=== PATIENT | female | born 1985 | race Caucasian/White ===

== ENCOUNTER 2016-09-25 07:12 | Inpatient (IN) | payer OTHER ==
[~2016-09-25 07:12] MED LIST: FISHCAP; LACTCAP7 PO; MAGN500T4 PO; PERC5TAB12 PO; PREN1TAB30; VITACAP32; [UNRECOGNIZED DRUG - OTHER]
[2016-09-25] MEDS ORDERED: LACTATED RINGER'S 1000 ML INJ 1,000 ML IV PRN (07:59)
[2016-09-25] MEDS ORDERED: LACTATED RINGER'S 1000 ML INJ 1,000 ML IV SCH (07:59)
[2016-09-25] MEDS ORDERED: CITRIC ACID-SODIUM CITRATE LIQ 30 ML UDC PO SCH (08:00)
[2016-09-25] MEDS ORDERED: OXYTOCIN 30 UNITS-500ML PREMIX 500 ML IV ONE (08:00)
[2016-09-25] MEDS ORDERED: SODIUM CHLORID 0.9% 500 ML INJ 500 ML IV PRN (08:00)
[2016-09-25] MEDS ORDERED: LIDOCAINE HCL 1% 50 ML VIAL I-DERMAL PRN (08:00)
[2016-09-25] MEDS ORDERED: MINERAL OIL 10 ML VIAL TOPICAL PRN (08:00)
[2016-09-25] MEDS ORDERED: LIDOCAINE HCL 1% 50 ML VIAL INFIL PRN (08:00)
--- NOTE | 2016-09-25 08:10 | HHI.HP ---
HPI Chief Complaint Complaint regular uterine contractions and pain denies ruptured membranes or bleeding followed by donavon DORADO Date Seen: Sep 25, 2016 Travel History International Travel<30 Days: No Contact w/Intl Traveler<30Days: No History of Present Illness HPI Patient 40 week intrauterine presents in active labor, no vaginal bleeding membranes are intact with a bulging bag. Cervix is 6 cm dilated AND an 100% effaced. Para: 1 : 3 : 1 History Past Medical History Narrative Medical Patient is a history of spina bifida occulta Obstetric History Obstetric History One vaginal delivery one spontaneous AB Family History Family History: Negative Social History Alcohol Use: No Tobacco Use: No Substance Abuse: No Allergies-Medications (Allergen,Severity, Reaction): Coded Allergies: No Known Allergies (Verified , 04/07/14) Home Meds Active Scripts Oxycodone-Acetaminophen 5-325 mg (Percocet 5-325 mg)1 Tab Tab2 Tab PO Q4H PRN ( PAIN SCALE 5 TO 10) #20 TAB Prov:Ernie Zelaya MD 04/09/14 Reported Medications Lactobacillus (Probiotic) Cap1 Po 04/07/14 [grassfed liver] No Conflict Check 04/07/14 Vitamin2 04/07/14 Magnesium (Magnesium)500 Mg Lbs468 Mg PO DAILY 04/07/14 Fish Oi1 04/07/14 Vit W/ Ferrous Fumara ( Vitamin 27-0.8 mg)1 Tab Tab 04/07/14 Review of Systems General / Constitutional: No: Fever, Weight Gain, Chills, Other Physical Exam Narrative GENERAL: Well-nourished, well-developed patient. SKIN: Warm and dry. HEAD: Normocephalic and atraumatic. EYES: No scleral icterus. No injection or drainage. ENT: No nasal drainage noted. Mucous membranes pink. Airway patent. NECK: Supple, trachea midline. No JVD. CARDIOVASCULAR: Regular rate and rhythm without murmurs, gallops, or rubs. RESPIRATORY: Breath sounds equal bilaterally. No accessory muscle use. BREASTS: Bilateral exam showed no masses , no retractions, no nipple discharge. ABDOMEN/GI: Abdomen soft, non-tender, bowel sounds present, no rebound, no guarding Gravid to [term-] weeks size Fundal Height: [38 cm-] GENITOURINARY: External Genitalia: intact and normal in appearance BUS glands: [-] Cervix: [-] Dilatation: [6 cm-] Effacement: [100-] Station: [-2] Presentation: [-vtx] Membranes: [intact ] Uterine Contractions: [yes] FHT's: Category: [1-] Baseline: [-145] Reactive: [-Reactive] Variability: [-] Decels: [-none] EXTREMITIES: No cyanosis or edema. BACK: Nontender without obvious deformity. No CVA tenderness. NEUROLOGICAL: Awake and alert. Motor and sensory grossly within normal limits. Five out of 5 muscle strength in all muscle groups. Normal speech. Data Data Orders Ob (2e) Additional Admit Info (09/25/16 07:41) Admit To Inpatient (09/25/16 ) Vital Signs (Adult) .Per protocol (09/25/16 07:59) ^ Heart (09/25/16 07:59) ^ Amnioinfusion (09/25/16 07:59) Urinary Catheter Management .ONCE (09/25/16 07:59) Diet Liquid (09/25/16 Breakfast) Lactated Ringer's 1000 Ml Inj (Lr 1000 M (09/25/16 07:59) Lactated Ringer's 1000 Ml Inj (Lr 1000 M (09/25/16 07:59) Sodium Chlorid 0.9% 500 Ml Inj (Ns 500 M (09/25/16 08:00) Sodium Chlor 0.9% 1000 Ml Inj (Ns 1000 M (09/25/16 08:19) Lidocaine 1% Inj (50 Ml) (Xylocaine 1% I (09/25/16 08:00) Citric Acid-Sodium Citrate Liq (Bicitra (09/25/16 08:00) Fentanyl Inj (Fentanyl Inj) (09/25/16 08:00) Fentanyl Inj (Fentanyl Inj) (09/25/16 08:00) Complete Blood Count With Diff (09/25/16 07:59) Hold Clot (09/25/16 07:59) Abo/Rh Blood Type (09/25/16 07:59) Urinalysis - C+S If Indicated (09/25/16 07:59) Resp Oxygen Non Rebreathe Mask (09/25/16 ) ^ Epidural / Intrathecal Infus (09/25/16 07:59) Oxytocin 30 Units-500ml Premix (Pitocin (09/25/16 08:00) Lidocaine 1% Inj (50 Ml) (Xylocaine 1% I (09/25/16 08:00) Light Mineral Oil (Muri-Lube Oil) (09/25/16 08:00) Specimen To Be Collected PRN (09/25/16 07:59) Assessment/Plan Assessment and Plan Patient is 40 week intrauterine A1 in active labor with cervix 6 cm /100 percent effaced / -2 with bulging membranes. [facility] and Dr. Campos's been notified plan to admit patient and anticipate vaginal delivery. Luis Vaz II, MD Sep 25, 2016 08:10
[2016-09-25] MEDS ORDERED: SODIUM CHLOR 0.9% 1000 ML INJ 1,000 ML IV PRN (08:19)
[2016-09-25 08:48] LABS: AUTOMATED NEUTROPHIL # 9.2 TH/MM3 (1.8-7.7); BASOPHIL % 0.2 % (0.0-2.0); EOSINOPHIL % 0.4 % (0.0-4.0); HEMATOCRIT 38.1 % (35.0-46.0); HEMO FLAGS DIFF FINAL; LYMPH % 6.8 % (9.0-44.0); LYMPHOCYTE # 0.8 TH/MM3 (1.0-4.8); MEAN CELL VOLUME 85.1 FL (80.0-100.0); MEAN CORPUSCULAR HEMOGLOBIN 30.3 PG (27.0-34.0); MEAN CORPUSCULAR HGB CONC 35.7 % (32.0-36.0); MONO % 8.7 % (0.0-8.0); NEUT % 83.9 % (16.0-70.0); PLATELET COUNT 179 TH/MM3 (150-450); RED BLOOD COUNT 4.48 MIL/MM3 (4.00-5.30); RED CELL DISTRIBUTION WIDTH 12.7 % (11.6-17.2)
[2016-09-25] MEDS ORDERED: fentaNYL 2MCG-BUPIV 0.125% INJ 100 ML ONE (08:49)
[2016-09-25] MEDS ORDERED: BUPIVACAINE HCL PF 0.25% 10 ML VIAL ONE ×2 (08:56→11:43)
[2016-09-25 09:03] LABS: BLOOD, URINE NEG (NEG); GLUCOSE,URINE NEG (NEG); KETONE, URINE NEG (NEG); MUCUS URINE FEW /lpf (OCC); NITRITE,URINE NEG (NEG); PH, URINE 6.5 (5.0-8.5); SQUAMOUS EPITHELIAL CELL URINE 5 /hpf (0-5); URINE COLOR YELLOW (YELLW/STRAW)
[2016-09-25 09:04] LABS: COMMENT (UR) CULT NOT INDICATED; CULTURE IF INDICATED CULT NOT INDICATED
[2016-09-25] MEDS ORDERED: fentaNYL 2MCG-BUPIV 0.125% INJ 100 ML EPIDURAL SCH (11:00)
[2016-09-25] MEDS ORDERED: ePHEDrine/NS 50 MG/5 ML SYR IV PRN (11:00)
[2016-09-25] MEDS ORDERED: NO SYSTEM NARCOTICS XX PRN (11:00)
[2016-09-25] MEDS ORDERED: DO NOT ADMINISTER ANTICOAGULANTS XX PRN (11:00)
--- NOTE | 2016-09-25 13:00 | PD.LABORPN ---
Subjective Subjective comfortable with epidural Objective Vital Signs prior elevated bp prior to epidural, since epidural all sbp under 130's Objective Pelvic Exam: 7/c/0, arom last check, clear cephalic OP FHT's: Category: I Assessment/Plan Assessment and Plan 31 yo with iup at 40 wk presented in labor 1) Labor-progressing on own without augmentation. AROM clear 2) spina bifida occulta, maternal 3) fetus cephalic- projected EFW 9lb based on last u/s, pelvis proven to 7.5 pounds. Discussed possible risk of arrest of dilation/descent and shoulder dystocia. Discussed dystocia maneuvers and possible cd if labor dystocia develops. Adrienne Campos MD Sep 25, 2016 13:00
[2016-09-25] MEDS ORDERED: MEASLES, MUMPS, RUBELLA VACCINE 0.5 ML VIAL SQ ONE (16:00)
[2016-09-25] MEDS ORDERED: DIPHTH/TETANUS/ACEL PERTUSSIS (BOOSTER) 0.5 ML VIAL/PFS IM ONE (16:00)
--- NOTE | 2016-09-25 16:31 | PD.OB.DELI ---
Delivery Date: Sep 25, 2016 Anesthesia: Epidural Episiotomy: None Vaginal Delivery: Normal Presentation: Occiput anterior Nuchal Cord: None Infant: Male One Minute : 9 Five Minute : 9 Weight: 9 lb 2 oz Care: Suctioned Placenta: Spontaneous delivery Laceration: Perineal laceration, 2 deg Repair: Chromic running Additional Information ebl 500ml./ Maternal temperature post delivery and tachycardia near delivery. Will give one dose of abx and send placental cultures. Adrienne Campos MD Sep 25, 2016 16:31
--- NOTE | 2016-09-25 16:34 | HHI.DCPOC ---
Discharge Care Plan Diagnosis: (1) Spontaneous vaginal delivery Your Health Problems Are: Vaginal bleeding Report Symptoms to Your Doctor -Temperate above 100.5 degrees -Redness, of incision or excessive or foul smelling drainage -Unusual pain or calf pain -Increased vaginal bleeding -Painful or difficulty urinating -Feelings of extreme sadness or anxiety after 2 weeks Goals to Promote Your Health * To prevent worsening of your condition and complications * To maintain your health at the optimal level Directions to Meet Your Goals Take your medications as prescribed Follow your dietary instruction Follow activity as directed Ensure plenty of rest for recovery Drink fluids for hydration Keep your appointments as scheduled Take your immunizations and boosters as scheduled If your symptoms worsen call your PCP, if no PCP go to Urgent Care Center or Emergency Room Smoking is Dangerous to Your Health. Avoid second hand smoke Call the 24-hour crisis hotline for domestic abuse at Adrienne Campos MD Sep 25, 2016 16:33
[2016-09-25] MEDS ORDERED: ACETAMINOPHEN 325 MG TAB PO PRN (16:45)
[2016-09-25] MEDS ORDERED: ALUMINUM/MAGNESIUM/SIMETH 30 ML CUP PO PRN (16:45)
[2016-09-25] MEDS ORDERED: ONDANSETRON ODT 4 MG TAB PO PRN (16:45)
[2016-09-25] MEDS ORDERED: ZOLPIDEM TARTRATE 5 MG TAB PO PRN (16:45)
[2016-09-25] MEDS ORDERED: BENZOCAINE 20% TOPICAL SPRAY 60 ML CAN TOPICAL PRN (16:45)
[2016-09-25] MEDS ORDERED: SODIUM CHLORIDE 0.9% FLUSH 5 ML FLUSH IV PRN (16:45)
[2016-09-25] MEDS ORDERED: oxyCODONE/ACETAMINOPHEN 5 MG/325 MG TAB PO PRN (16:45)
[2016-09-25] MEDS ORDERED: AMPICILLIN-SULBACTAM INJ 3 GM VIAL IV ONE (17:00)
[2016-09-25] MEDS: IBUPROFEN 600 MG TAB PO PRN (19:46)
[2016-09-25] MEDS: WITCH HAZEL 50%/GLYCERIN 12.5% 40 PAD JAR TOPICAL PRN (21:11)
[2016-09-26] MEDS: IBUPROFEN 600 MG TAB PO PRN ×3 (00:54→12:28)
--- NOTE | 2016-09-26 08:22 | HHI.OB ---
Subjective Post Day: 1 Remarks feeling well this morning, min bleeding. No fevers Objective Vitals/I&O Vital Signs Date Time Temp Pulse Resp B/P Pulse Ox O2 Delivery O2 Flow Rate FiO2 09/26/16 01:54 18 Objective Remarks GENERAL: Well-nourished, well-developed patient. CARDIOVASCULAR: Regular rate and rhythm without murmurs, gallops, or rubs. RESPIRATORY: Breath sounds equal bilaterally. No accessory muscle use. ABDOMEN/GI: Abdomen soft, non-tender. Fundus: Firm, non-tender at umbilicus. GENITOURINARY: Light to moderate bleeding. EXTREMITIES: No cyanosis or edema, non-tender, without signs of DVT. Medications and IVs Current Medications Medications (Trade) Dose Ordered Sig/Marcela Route Start Time Stop Time Status Last Admin (NS Flush) 2 ml BID IV 09/25/16 21:00 (NS Flush) 2 ml UNSCH PRN IV 09/25/16 16:45 (Tylenol) 650 mg Q4H PRN PO 09/25/16 16:45 (Motrin) 600 mg Q6H PRN PO 09/25/16 16:45 09/26/16 06:38 (Percocet 5-325 Mg) 1 tab Q4H PRN PO 09/25/16 16:45 (Americaine 20% Top Spr) 1 spray Q4H PRN TOPICAL 09/25/16 16:45 09/25/16 21:11 (Tucks Pads) 1 applic QID PRN TOPICAL 09/25/16 16:45 09/25/16 21:11 (Laurie-Colace) 2 tab Q12H PRN PO 09/25/16 16:45 (Ambien) 5 mg HS PRN PO 09/25/16 16:45 (Mag-Al Plus Susp Liq) 15 ml Q8H PRN PO 09/25/16 16:45 (Zofran Odt) 4 mg Q6H PRN PO 09/25/16 16:45 Assessment/Plan Problem List: (1) Spontaneous vaginal delivery Assessment and Plan PPD 1 s/p - cont routine care - possible chorio, given one dose of abx pp. asymptomatic now, no uterine tenderness. Will f/u placental cultures. . Adrienne Campos MD Sep 26, 2016 08:22
[2016-09-26] MEDS: DOCUSATE SODIUM 50 MG/SENNA 8.6 MG TAB PO PRN (08:28)
[2016-09-26] MEDS: SODIUM CHLORIDE 0.9% FLUSH 5 ML FLUSH IV SCH ×2 (09:00→21:00)
[2016-09-26] MEDS ORDERED: IBUP-232 PO (10:29)
[2016-09-27] MEDS: IBUPROFEN 600 MG TAB PO PRN ×2 (05:35→12:30)
[2016-09-27] MEDS: WITCH HAZEL 50%/GLYCERIN 12.5% 40 PAD JAR TOPICAL PRN (05:39)
[2016-09-27 06:35] VITALS: RESP 18
--- NOTE | 2016-09-27 07:44 | HHI.OB ---
Subjective Post Day: 2 Remarks s/p FT of male Objective Vitals/I&O Vital Signs Date Time Temp Pulse Resp B/P Pulse Ox O2 Delivery O2 Flow Rate FiO2 09/27/16 06:35 18 Objective Remarks GENERAL: Well-nourished, well-developed patient. CARDIOVASCULAR: Regular rate and rhythm without murmurs, gallops, or rubs. RESPIRATORY: Breath sounds equal bilaterally. No accessory muscle use. ABDOMEN/GI: Abdomen soft, non-tender. Fundus: Firm, non-tender at umbilicus. GENITOURINARY: Light bleeding. EXTREMITIES: No cyanosis or edema, non-tender, without signs of DVT. Medications and IVs Current Medications Medications (Trade) Dose Ordered Sig/Marcela Route Start Time Stop Time Status Last Admin (NS Flush) 2 ml BID IV 09/25/16 21:00 (NS Flush) 2 ml UNSCH PRN IV 09/25/16 16:45 (Tylenol) 650 mg Q4H PRN PO 09/25/16 16:45 (Motrin) 600 mg Q6H PRN PO 09/25/16 16:45 09/27/16 05:35 (Percocet 5-325 Mg) 1 tab Q4H PRN PO 09/25/16 16:45 (Americaine 20% Top Spr) 1 spray Q4H PRN TOPICAL 09/25/16 16:45 09/25/16 21:11 (Tucks Pads) 1 applic QID PRN TOPICAL 09/25/16 16:45 09/27/16 05:39 (Laurie-Colace) 2 tab Q12H PRN PO 09/25/16 16:45 09/26/16 08:28 (Ambien) 5 mg HS PRN PO 09/25/16 16:45 (Mag-Al Plus Susp Liq) 15 ml Q8H PRN PO 09/25/16 16:45 (Zofran Odt) 4 mg Q6H PRN PO 09/25/16 16:45 Assessment/Plan Problem List: (1) Spontaneous vaginal delivery Assessment and Plan PPD 2 routine care d/c to home today desires infant circ in office, will call to schedule this week . Discharge Planning routine, today Jannie Pardo MD Sep 27, 2016 07:44
[2016-09-27] MEDS: DOCUSATE SODIUM 50 MG/SENNA 8.6 MG TAB PO PRN (12:29)
== END 2016-09-27 14:21 | disposition home or self-care (01) | DRG 774 ==
LOC: HOBED 07:12 → H2EB 07:47 → H1EA 20:31
PROVIDERS: ADMIT Obstetrics & Gynecology; ATTEND Obstetrics & Gynecology
PROC: 10E0XZZ Delivery of Products of Conception, External Approach (ICD-10-PCS; principal; 2016-09-25)
PROC: 0KQM0ZZ Repair Perineum Muscle, Open Approach (ICD-10-PCS; 2016-09-25)
PROC: 10907ZC Drainage of Amniotic Fluid, Therapeutic from Products of Conception, Via Natural or Artificial Opening (ICD-10-PCS; 2016-09-25)
PROC: 00HU33Z Insertion of Infusion Device into Spinal Canal, Percutaneous Approach (ICD-10-PCS; 2016-09-25)
PROC: 3E0R3CZ (ICD-10-PCS; 2016-09-25)
DX: O26.893 Other specified pregnancy related conditions, third trimester (principal); O86.4 Pyrexia of unknown origin following delivery; O76 Abnormality in fetal heart rate and rhythm complicating labor and delivery; Q76.0 Spina bifida occulta; O70.1 Second degree perineal laceration during delivery; Z3A.40 40 weeks gestation of pregnancy; Z37.0 Single live birth
CPT/HCPCS: 59025; 81001; 85025; 86900; 86901; 87070; 99285; J0295; J7120